=== PATIENT | female | born 1940 | race Caucasian/White ===

== ENCOUNTER 2016-09-20 20:47 | Emergency (ER) | payer OTHER ==
[~2016-09-20] VITALS: Ht 160 cm; Wt 100.0 kg
[~2016-09-20 20:47] MED LIST: ADVIL,NUPRIN,M200 MG PO; ASPIRIN EC325 MG PO; ATORVASTATIN CA80 MG PO; BENAZEPRIL HCL20 MG PO; CARAFATE100 MG/ML PO; CRESTOR20 MG PO; CYANOCOBALAM1000 MCG PO; Ecotrin PO; Effient PO; GLUCOPHAGE XR750 MG PO; Glucophage XR PO; HUMULIN N100 UNITS/ SC; LANTUS 3 M100 UNITS1 SC; LOPRESSOR25 MG PO; MELOXICAM15 MG PO; MICROZIDE12.5 M1 PO; NITROSTAT0.3 MG SL; NITROSTAT0.4 MG SL; NORVASC5 MG PO; PriLOSEC PO; TRAMADOL HCL50 MG PO; TRICOR145 MG PO; Zestril,Prinivil PO
[2016-09-20] MEDS ORDERED: NORCO 5/3251 TABLET PO (23:41)
[2016-09-20] MEDS ORDERED: ZOFRAN ODT4 MG PO (23:41)
[2016-09-21 00:03] VITALS: BP 124/57
== END 2016-09-21 00:04 | disposition home or self-care (01) ==
LOC: EME → EDBD 20:47 → EME 20:47
DX: S42.302A Unspecified fracture of shaft of humerus, left arm, initial encounter for closed fracture (principal); W01.198A Fall on same level from slipping, tripping and stumbling with subsequent striking against other object, initial encounter; Y92.007 Garden or yard of unspecified non-institutional (private) residence as the place of occurrence of the external cause; I10 Essential (primary) hypertension; E11.9 Type 2 diabetes mellitus without complications; E78.5 Hyperlipidemia, unspecified; Z88.6 Allergy status to analgesic agent; Z87.891 Personal history of nicotine dependence; Z79.82 Long term (current) use of aspirin; Z95.5 Presence of coronary angioplasty implant and graft; Z79.84 Long term (current) use of oral hypoglycemic drugs
CPT/HCPCS: 73060; 99281; 99285; J3010